=== PATIENT | male | born 2000 | race Two or more races ===

== ENCOUNTER 2024-02-24 11:05 | Inpatient (IN) ==
[2024-02-24] MEDS: SODIUM CHLORIDE 0.9% 1,000 ML IV STA (12:00)
--- NOTE | 2024-02-24 12:00 | Emergency Department Note ---
ED Provider Note History of Present Illness Chief Complaint: Rectal Pain Stated Complaint: RECTAL PAIN Time Seen by Provider: 02/24/24 11:42 23-year-old male who presents the emergency department with complaint of progressively worsening rectal pain. The patient reports that he has had discomfort for the past few days. He was seen yesterday at [facility], diagnosed with a hemorrhoid, and provided a prescription for hydrocortisone cream. The patient reports that he has been dealing with diarrhea now for over a year. He reports that [facility] will be getting some additional lab work on Sunday, and has been referred to gastroenterology for further workup. The patient denies any lower abdominal pain, nausea or fever. Patient denies any urinary symptoms. The patient rates his discomfort a 3 out of 10. Home Medications Medication Instructions Recorded Confirmed Type hydrocortisone 2.5 % topical cream 1 applic [place] DAILY PRN IRRITATION 02/24/24 02/24/24 History with perineal applicator Allergies Allergy/AdvReac Type Severity Reaction Status Date / Time cat dander Allergy Intermediate Sneezing Unverified 02/24/24 14:34 Past Med/Surg History Problem List (Updated 02/24/24 @ 15:52 by Jus Mann) Pancolitis (Acute) Krista-rectal abscess (Acute) Pancolitis Perirectal abscess Rectal pain (Acute) Diarrhea Medical History (Updated 02/24/24 @ 15:52 by Jus Mann) No significant past medical history Surgical History (Updated 02/24/24 @ 11:58 by Jus Mann) No significant past surgical history Social History (Updated 02/24/24 @ 11:58 by Jus Mann) Smoking Status: Never smoker Second Hand Exposure: Yes; Do You Dip or Chew Tobacco: No; Hx Alcohol Use: No Hx Substance Use: No Preferred Language: Luxembourgish Pharmacist Assistant Required: No Beliefs That Will Affect Care: Roman Catholic Roman Catholic Beliefs: Muslium No pig products or gelitin. current occupational status: student Feels Safe at Home: Yes Assistive Devices: Glasses Physical Exam Vital Signs Vital Signs - 24 hr 02/24/24 11:12 02/24/24 14:00 Temperature 36.3 C L Temperature Source Temporal Artery Scan Pulse Rate 117 H Pulse Rate [Left Finger] 87 Respiratory Rate 18 18 Respiratory Effort / Characteristics Non-Labored Spontaneous Respiratory Depth Normal Respiratory Pattern Regular Blood Pressure 126/70 Blood Pressure [Right Arm] 125/69 Blood Pressure Mean 88 Blood Pressure Mean [Right Arm] 87 Blood Pressure Position [Right Arm] Lying Pulse Oximetry 96 98 Oxygen Delivery Method Room Air Sepsis Recent Fever Within 48 Hours No Sepsis New/Unexplained Change in Mental Status N/A Sepsis Action Taken by Nursing No Action Required CONSTITUTIONAL: Healthy and well nourished. Patient does not appear in any acute distress HEENT: No scleral icterus or conjunctival injection. GASTROINTESTINAL: Bowel sounds present in all quadrants. Abdomen is soft and nontender to palpation. With a male nurse cargo station worker present, examination does not show any external hemorrhoids. The patient has tenderness to palpation of the left posterior perirectal region. Digital rectal exam was deferred because of patient discomfort. No overriding erythema noted. INTEGUMENTARY: No rash or other significant dermatologic conditions noted. HEMATOLOGIC: No ecchymosis or petechiae. PSYCHIATRIC: Positive affect. NEUROLOGIC: No focal neurologic deficits noted. Course Course Patient history and physical exam were performed. Nurses notes reviewed. Vital signs were reviewed, showing a tachycardia without evidence for fever or hypotension. IV access was established, and labs were drawn. The patient refused any analgesics or antiemetics on initial exam. Review of labs shows a mild leukocytosis. CMP is otherwise unremarkable other than mildly elevated total bilirubin and CRP. CT with IV contrast of the abdomen and pelvis shows a 15 mm left perirectal abscess, with mild colitis with circumferential thickening, and no additional abscesses or perforations noted. Findings were discussed with Dr. Killian, ED team physician, as well as general surgery on-call. They indicated that the abscess would be too small to drain at this time, but did recommend admission for IV antibiotics and GI consultation. I did order Zosyn 4.5 g IV infusion. The patient refused any additional analgesics. The case was then discussed with the [facility] Hospitalist service. Please see their dictations, as well as general surgery dictations for further treatment and final disposition. Administered Medications Lactated Ringer's (Lr) 1,000 mls @ 100 mls/hr IV .Q10H DARI Stop: 02/25/24 00:29 Last Admin: 02/24/24 16:22 Dose: 100 mls/hr Documented By: KELLIE Discontinued Medications Sodium Chloride (Nss) 1,000 mls @ 999 mls/hr IV .Q1H1M STA Stop: 02/24/24 12:54 Last Infusion: 02/24/24 13:01 Dose: Infused Documented By: Admin: 02/24/24 12:00 Dose: 999 mls/hr Documented By: DEREK Piperacillin Sod/Tazobactam Sod (Zosyn) 4.5 gm in 100 mls @ 200 mls/hr IV NOW ONE Stop: 02/24/24 14:42 Last Admin: 02/24/24 14:20 Dose: 200 mls/hr Documented By: DEREK Ioversol (Optiray 320 100ml) 94 ml IV ONCE ONE Stop: 02/24/24 13:21 Last Admin: 02/24/24 13:20 Dose: 94 ml Documented By: VAISHNAVI Medical Decision Making Medical Records Attestation: I reviewed the patient's medical records. Home Medications was personally reviewed by Laboratory Data Attestation: I reviewed the patient's lab results. 02/24/24 12:00 02/24/24 12:00 Lab Results 02/24/24 Range/Units 12:00 WBC 10.89 H (4.8-10.8) K/ul RBC 5.48 (4.70-6.10) M/uL Hgb 14.2 (14.0-18.0) g/dl Hct 43.7 (42.0-52.0) % MCV 79.7 L (80.0-100.0) fL MCH 25.9 (25.0-34.0) pg MCHC 32.5 (32.0-36.0) g/dL RDW Std Deviation 35.4 L (36.4-46.3) fL RDW Coeff of Sommer 12.4 (11.5-14.5) % Plt Count 354 (130-400) K/uL MPV 9.6 (9.4-12.4) fL Immature Gran % (Auto) 0.5 % Neut % (Auto) 67.2 % Lymph % (Auto) 20.8 % [place] % (Auto) 9.2 % Eos % (Auto) 1.7 % Baso % (Auto) 0.6 % Neut # (Auto) 7.34 H (1.40-6.50) K/uL Lymph # (Auto) 2.26 (1.20-3.40) K/uL [place] # (Auto) 1.00 H (0.11-0.59) K/uL Eos # (Auto) 0.18 (0.00-0.50) K/uL Baso # (Auto) 0.06 (0.00-0.20) K/uL Immature Gran # (Auto) 0.05 (0.01-0.20) K/uL Sodium 136 (136-145) mmol/L Potassium 3.9 (3.5-5.1) mmol/L Chloride 104 (98-107) mmol/L Carbon Dioxide 25 (21-32) mmol/L Anion Gap 7 (3-11) BUN 10 (6-23) mg/dl Creatinine 1.00 (0.6-1.4) mg/dl Est Cr Clr Drug Dosing Not Reportable Est GFR ( Amer) 123.3 ml/min Est GFR (Non-Af Amer) 106.4 ml/min BUN/Creatinine Ratio 10.0 (10-20) Glucose 87 (70-99(Fasting)) mg/dl Calcium 9.6 (8.6-10.3) mg/dl Total Bilirubin 1.8 H (0.2-1.0) mg/dl AST 18 (13-39) U/L ALT 24 (7-52) U/L Alkaline Phosphatase 99 (34-104) U/L C-Reactive Protein 2.62 H (0-0.5) mg/dl Total Protein 7.6 (6.0-8.3) gm/dl Albumin 4.4 (3.4-5.0) gm/dl Globulin 3.2 (2.5-4.0) gm/dl Albumin/Globulin Ratio 1.4 (0.9-2) Lipase 14 (11-82) U/L Imaging Data Attestation: I personally reviewed and interpreted this imaging study as follows: My Impression: My interpretation of the CT with IV contrast of the abdomen and pelvis shows evidence for a 15 mm left perirectal abscess, as well as pancolitis without any additional abscesses or perforations. Radiologist report was also reviewed with concurrence. Radiologist's Impression: Abdomen/Pelvis CT 02/24/24 11:[address] WITH IV CONTRAST CT DOSE: 1647.36 mGy.cm HISTORY: Rectal pain TECHNIQUE: Multiaxial CT images of the abdomen and pelvis were performed following the use of intravenous contrast. A dose lowering technique was utilized adhering to the principles of ALARA. COMPARISON STUDY: None. FINDINGS: The lung bases are clear. No pneumoperitoneum. No pneumatosis. No acute fractures. The liver, gallbladder, pancreas, spleen, adrenal glands, and kidneys are unremarkable. No hydronephrosis. The main portal vein is patent. Normal caliber abdominal aorta. No retroperitoneal lymphadenopathy. A few prominent mesenteric lymph nodes which may be reactive. No pelvic lymphadenopathy or pelvic free fluid. Normal bladder. There is a 15 mm left perirectal abscess best seen on image 358. No supralevator extension. There is mild circumferential thickening throughout the colon which demonstrates an ahaustral appearance. This is consistent with a mild colitis and could be due to an underlying inflammatory bowel disease. No evidence for bowel obstruction. Normal appendix. IMPRESSION: 1. A 15 mm left perirectal abscess. 2. Mild circumferential thickening throughout the colon consistent with a mild pancolitis. This could be due to an underlying inflammatory bowel disease. GI consultation recommended. ACT 112: Negative or not required by law. Electronically signed by: Sekou Lee M.D. 02/24/2024 1:36 PM MDM Narrative See ED Course section for further details of today's visit. The patient presents for evaluation of progressively worsening and painful hemorrhoid after being seen yesterday at [facility]. He was provided a prescription for hydrocortisone cream. On today's examination, the patient does not have evidence for external hemorrhoid, but rather a painful area of induration of the perianal region. CT with IV contrast of the abdomen and pelvis shows a 15 mm perirectal abscess and pancolitis. This is concerning for underlying IBD. The abscess does appear to be too small for I&D at this time, with general surgery in agreement. They have recommended admission for IV antibiotics and GI consultation. General surgery will also follow in case I&D would be needed. Impression Krista-rectal abscess, Rectal pain, Pancolitis Discharge Plan Visit Data Chief Complaint: Rectal Pain Stated Complaint: RECTAL PAIN ED Provider: Vinnie Killian ED Midlevel Provider: Jus Mann Discharge Problem: Krista-rectal abscess, Rectal pain, Pancolitis Patient Disposition: Admitted As Inpatient Discharge Instructions Interventions: ED Discharge Assessment Last Done: 02/24/24 14:48
[2024-02-24 12:32] LABS: Basophils # (auto) 0.06 K/uL (0.00-0.20); Basophils % (auto) 0.6 %; Eosinophils # (auto) 0.18 K/uL (0.00-0.50); Eosinophils % (auto) 1.7 %; Hematocrit (blood only) 43.7 % (42.0-52.0); Hemoglobin 14.2 g/dl (14.0-18.0); Immature Granulocytes # (auto) 0.05 K/uL (0.01-0.20); Immature Granulocytes % (auto) 0.5 %; Lymphocytes # (auto) 2.26 K/uL (1.20-3.40); Lymphocytes % (auto) 20.8 %; Mean Corpuscular Hemoglobin 25.9 pg (25.0-34.0); Mean Corpuscular Hgb Conc 32.5 g/dL (32.0-36.0); Mean Corpuscular Volume 79.7 fL (80.0-100.0); Mean Platelet Volume 9.6 fL (9.4-12.4); Monocytes % (auto) 9.2 %; Neutrophils # (auto) 7.34 K/uL (1.40-6.50); Neutrophils % (auto) 67.2 %; Platelet Count 354 K/uL (130-400); RDW Coefficient of Variation 12.4 % (11.5-14.5); RDW Standard Deviation 35.4 fL (36.4-46.3); Red Blood Count 5.48 M/uL (4.70-6.10); White Blood Count 10.89 K/ul (4.8-10.8)
[2024-02-24 12:45] LABS: Alanine Aminotransferase 24 U/L (7-52); Albumin Globulin Ratio 1.4 (0.9-2); Albumin Level 4.4 gm/dl (3.4-5.0); Alkaline Phosphatase 99 U/L (34-104); Anion Gap 7 (3-11); Aspartate Aminotransferase 18 U/L (13-39); Bilirubin,Total 1.8 mg/dl (0.2-1.0); Blood Urea Nitrogen 10 mg/dl (6-23); Calcium 9.6 mg/dl (8.6-10.3); Carbon Dioxide 25 mmol/L (21-32); Chloride 104 mmol/L (98-107); Est GFR (African American) 123.3 ml/min; Est GFR (Non-African American) 106.4 ml/min; Globulin 3.2 gm/dl (2.5-4.0); Glucose 87 mg/dl (70-99(Fasting)); Lipase 14 U/L (11-82); Potassium 3.9 mmol/L (3.5-5.1); Sodium 136 mmol/L (136-145); Total Protein 7.6 gm/dl (6.0-8.3)
[2024-02-24] MEDS: OPTIRAY 320 100ml IV ONE (13:20)
--- NOTE | 2024-02-24 13:38 | CT Scan Report ---
ABDOMEN AND PELVIS CT WITH IV CONTRAST CT DOSE: 1647.36 mGy.cm HISTORY: Rectal pain TECHNIQUE: Multiaxial CT images of the abdomen and pelvis were performed following the use of intrave nous contrast. A dose lowering technique was utilized adhering to the principles of ALARA. COMPARISON STUDY: None. FINDINGS: The lung bases are clear. No pneumoperitoneum. No pneumatosis. No acute fractures. The live r, gallbladder, pancreas, spleen, adrenal glands, and kidneys are unremarkable. No hydronephrosis. Th e main portal vein is patent. Normal caliber abdominal aorta. No retroperitoneal lymphadenopathy. A f ew prominent mesenteric lymph nodes which may be reactive. No pelvic lymphadenopathy or pelvic free f luid. Normal bladder. There is a 15 mm left perirectal abscess best seen on image 358. No supralevato r extension. There is mild circumferential thickening throughout the colon which demonstrates an ahau stral appearance. This is consistent with a mild colitis and could be due to an underlying inflammato ry bowel disease. No evidence for bowel obstruction. Normal appendix. IMPRESSION: 1. A 15 mm left perirectal abscess. 2. Mild circumferential thickening throughout the colon consistent with a mild pancolitis. This could be due to an underlying inflammatory bowel disease. GI consultation recommended. ACT 112: Negative or not required by law. Electronically signed by: Sekou Lee M.D. 02/24/2024 1:36 PM
--- NOTE | 2024-02-24 14:07 | History & Physical Report ---
Date of Service February 24, 2024 Assessment & Plan (1) Rectal pain: Plan: Admit to [facility] Currently stable and nontoxic-appearing Presented to the ED with approximately 2 weeks of recurrent diarrhea and progressive perirectal pain Was given hydrocortisone cream by [facility] services yesterday without improvement of his symptoms CT abdomen pelvis with IV contrast today shows an approximate 15 mm left Gus rectal abscess General surgery has been consulted, they will evaluate the patient but per review of imaging they do not believe the abscess is able to be drained at this time Was given 1 L normal saline and ordered a dose of Zosyn in the ED prior to adm ission Will continue with Zosyn for now Will obtain stool panel and C. difficile testing for further assessment Patient denies recent antibiotic use or previous history of IBS in his history or family history Will give another 1 L LR at the time of admission As needed Tylenol and morphine for pain Will order a [id number] mattress for comfort Clear liquid diet for now Ambulation in the hallway for DVT prophylaxis AM CBC, CMP, mag, PT/INR (2) Pancolitis: Plan: CT of the abdomen pelvis with IV contrast notes mild circumferential thickening throughout the colon consistent with a mild pancolitis CT results recommend GI consultation due to possibility of findings being consistent with IBS Will continue IV fluids and IV antibiotics per rectal pain plan Follow stool studies and C. difficile PCR Will give 80 mg IV pantoprazole now with 40 mg IV twice daily due to his reported lack diarrhea, hemoglobin is currently stable Clear liquid diet for now Will hold off on GI consult while admitted as they likely will not perform colonoscopy with active colitis and perirectal abscess Please ensure patient has an outpatient GI referral at the time of discharge (3) Diarrhea: Plan: See rectal pain and pancolitis plan (4) Perirectal abscess: Plan: See rectal pain plan Plan The patient was discussed with Dr. Woodard at the time of admission History of Present Illness Chief Complaint: Recurrent diarrhea, rectal pain Primary Care Provider: [facility] [place] Is a 23-year-old male with a past medical history of asthma who presented to the [facility] ED on 02/24/2024 with complaints of ongoing diarrhea and progressive rectal pain for the past 2 weeks. On arrival to the ED he was noted to be tachycardic at 117 but was otherwise stable. Labs were significant for leukocytosis of 10 with neutrophil predominance of 7 and total bili of 1.8 with other LFTs within normal limits. CT of the abdomen pelvis with IV contrast was read as a 15 mm left perirectal abscess. Mild circumferential thickening throughout the colon consistent with a mild pancolitis. This could be due to an underlying inflammatory bowel disease GI co nsultation recommended. The ED spoke to general surgery who will evaluate the patient but did not believe the abscess is large enough to be drained at this time. Prior to admission the patient was given 1 L NSS and was ordered a dose of Zosyn. Patient was sitting in bed in no acute distress at time of exam. He explains that he has been having persistent diarrhea over the past 2 weeks. Approxi mately 10-20 episodes of diarrhea daily. Denies bloody bowel movements, but notes some dark/black diarrhea at times. No recent fevers chills, no recent nausea/vomiting, has been able to eat and drink without issue. Over the past 2 weeks he has developed progressive rectal pain, mainly on the upper left perirectal area. He was evaluated at [facility] on 02/23/2024 and was given hemorrhoid cream. Since using the hemorrhoid cream his pain is progressed. No previous history or diagnosis of IBS for the patient or in his family. He does note 2-3 other episodes in the past of diarrhea and mild abdominal pain. He used 1 dose of ibuprofen for his pain yesterday but has not been taking it consistently. Please refer to Dr. Woodard's attestation for any changes to the treatment plan Allergies Allergy/AdvReac Type Severity Reaction Status Date / Time cat dander Allergy Intermediate Sneezing Unverified 02/24/24 14:34 Home Medications Medication Instructions Recorded Confirmed Type hydrocortisone 2.5 % topical cream 1 applic [place] DAILY PRN IRRITATION 02/24/24 02/24/24 History with perineal applicator Past Med/Surg History Problem List (Updated 02/24/24 @ 15:52 by Jus Mann) Pancolitis (Acute) Krista-rectal abscess (Acute) Pancolitis Perirectal abscess Rectal pain (Acute) Diarrhea Medical History (Updated 02/24/24 @ 15:52 by Jus Mann) No significant past medical history Surgical History (Updated 02/24/24 @ 11:58 by Jus Mann) No significant past surgical history Social History (Updated 02/24/24 @ 11:58 by Jus Mann) Smoking Status: Never smoker Second Hand Exposure: Yes; Do You Dip or Chew Tobacco: No; Hx Alcohol Use: No Hx Substance Use: No Preferred Language: Slovak Pile Driver Operator Helper Required: No Beliefs That Will Affect Care: Adventist Adventist Beliefs: Muslium No pig products or gelitin. current occupational status: student Feels Safe at Home: Yes Assistive Devices: Glasses Physical Exam Physical Exam: Physical Exam: General: In no acute distress, stated age, well-nourished, non-toxic appearing HEENT: Normocephalic, atraumatic, no scleral icterus, pupils around round, symmetrical, and reactive to light, moist mucus membranes, trachea midline, no thyromegaly Chest/Pulm: No respiratory distress, symmetrical chest expansion, clear breath sounds throughout Cardiac: RRR, no murmurs noted Abdomen: Negative for ascites and bruising, normoactive bowel sounds, soft, non-tender to palpation throughout : No obvious sign of infection, erythema, induration, or drainage on inspection and palpation of the perirectal area, patient does have tenderness on palpation of the left upper perirectal region Musculoskeletal: Symmetrical and without signs of acute trauma, upper and lower extremities with full ROM, no atrophy, spasticity, or flaccidity Extremities: Radial, dorsalis pedis, and posterior tibial pulses are intact and symmetrical, no edema noted in the BL LE's Skin: Warm, dry, no rashes , lesions, or scars noted Neuro: Alert and oriented to person, place, month, year, and president, no focal defects, no tremors noted Psych: No acute distress, calm and cooperative during the exam Results & Data Results & Data Vital Signs (Past 12 Hours) Vital Signs Temp Pulse Pulse Resp BP BP Pulse Ox 02/24/24 14:00 87 18 125/69 98 02/24/24 11:12 36.3 C L 117 H 18 126/70 96 O2 Del Method 02/24/24 14:00 02/24/24 11:12 Room Air Laboratory Results Abnormal lab results 02/24/24 Range/Units 12:00 WBC 10.89 H (4.8-10.8) K/ul MCV 79.7 L (80.0-100.0) fL RDW Std Deviation 35.4 L (36.4-46.3) fL Neut # (Auto) 7.34 H (1.40-6.50) K/uL [place] # (Auto) 1.00 H (0.11-0.59) K/uL Total Bilirubin 1.8 H (0.2-1.0) mg/dl Diagnostic Findings Abdomen/Pelvis CT 02/24/24 11:[address] WITH IV CONTRAST CT DOSE: 1647.36 mGy.cm HISTORY: Rectal pain TECHNIQUE: Multiaxial CT images of the abdomen and pelvis were performed following the use of intravenous contrast. A dose lowering technique was utilized adhering to the principles of ALARA. COMPARISON STUDY: None. FINDINGS: The lung bases are clear. No pneumoperitoneum. No pneumatosis. No acute fractures. The liver, gallbladder, pancreas, spleen, adrenal glands, and kidneys are unremarkable. No hydronephrosis. The main portal vein is patent. Normal caliber abdominal aorta. No retroperitoneal lymphadenopathy. A few prominent mesenteric lymph nodes which may be reactive. No pelvic lymphadenopathy or pelvic free fluid. Normal bladder. There is a 15 mm left perirectal abscess best seen on image 358. No supralevator extension. There is mild circumferential thickening throughout the colon which demonstrates an ahaustral appearance. This is consistent with a mild colitis and could be due to an underlying inflammatory bowel disease. No evidence for bowel obstruction. Normal appendix. IMPRESSION: 1. A 15 mm left perirectal abscess. 2. Mild circumferential thickening throughout the colon consistent with a mild pancolitis. This could be due to an underlying inflammatory bowel disease. GI consultation recommended. ACT 112: Negative or not required by law. Electronically signed by: Sekou Lee M.D. 02/24/2024 1:36 PM Code Status & VTE Plan Code Status full code VTE Prophylaxis Plan VTE Prophylaxis will be ordered: Yes Supervising Physician Co-Signing Physician Notes I personally saw and examined the patient. I verified all vance points and agree with Eduar Louie PA-C with the following exceptions and/or additions: 23 year old male presents to the ER with 2 days rectal pain/lump. 2 weeks of diarrhea prior to this. Intermittent diarrhea episodes for the last 2 years. O/E HS RRR, no murmurs, Chest CTAB, Abdo SNT A/P Perirectal abscess - IV Zosyn, clear liquid diet. Diarrhea - improving, stool and c. diff PCR. Consider follow up with GI for colonoscopy if infectious etiology ruled out. PG Care Time/CCT Total # of Minutes Spent Total Time Spent with Patient: Total time spent is greater than 50% in coordination of care (as documented) at patient's floor/unit and/or counseling patient: [place] [address] INT INP/OBS CARE 2/55MIN Patient Type New Medical Decision Making Moderate Complexity Diagnoses Rectal pain K62.89 Pancolitis K51.00 Diarrhea R19.7 Perirectal abscess K61.1
[2024-02-24] MEDS ORDERED: MoRPHine SULFATE 2 MG/ML CARP IV PRN (14:20)
[2024-02-24] MEDS: PIPERACILLIN/TAZOBACTAM 4.5 GM/100 ML BAG IV ONE (14:20)
[2024-02-24 14:49] LABS: C Reactive Protein 2.62 mg/dl (0-0.5)
--- NOTE | 2024-02-24 15:59 | Surgery Consultation ---
Date of Consultation February 24, 2024 Assessment & Plan (1) Pancolitis: (2) Krista-rectal abscess: Plan 23 y/o M with recent h/l ongoing diarrhea having multiple stools per day that have been black and tarry occasionally. CT with questionable pancolitis suggesting of IBD and evidence for a very small perirectal abscess. He is HD stable, afebrile, without significant leukocytosis or pain. No acute surgical intervention. Patient would benefit from IV antibiotic treatment at this time Recommend stools studies if the patient continues to have diarrhea during admission. GI evaluation potentially for IBD is pending. From a surgical perspective, he may continue a diet. NPO after MN until surgical assessment in the am. History of Present Illness Reason for Consultation: Perirectal abscess Attending Physician: Juan Woodard MD History of Present Illness Morro is a 23y/o M who presented to the ED today for further evaluation of perirectal pain. He states he has been having 20-22BMs per day that are sometimes dark and tarry. He says he began to develop anal pain that progressively worsened over the past week or so which brought him to the emergency room. In the ED, he was HD stable, afebrile with very mild leukocytosis of 10.89 and normal H/H. A CT of the A/P was performed that revealed a 15mm perirectal abscess and mild circumferential thickening throughout the colon consistent with a mild pancolitis that appeared potentially due to an underlying inflammatory bowel disease. He was started on IV antiobiotics and has been admitted to medicine with requests for GI and surgical consultation. Morro states he does not current have abdominal pain. He occasionally will have abdominal pain just before having bowel movements. He uses Ibuprofen on rare occasions but not excessively. He denies a FHX of inflammatory bowel disease. Allergies Allergy/AdvReac Type Severity Reaction Status Date / Time cat dander Allergy Intermediate Sneezing Unverified 02/24/24 14:34 Home Medications Medication Instructions Recorded Confirmed Type hydrocortisone 2.5 % topical cream 1 applic [place] DAILY PRN IRRITATION 02/24/24 02/24/24 History with perineal applicator Patient History Medical History (Updated 02/24/24 @ 15:52 by Jus Mann) No significant past medical history Surgical History (Updated 02/24/24 @ 11:58 by Jus Mann) No significant past surgical history Social History (Updated 02/24/24 @ 11:58 by Jus Mann) Smoking Status: Never smoker Preferred Language: Taiwanese current occupational status: student Feels Safe at Home: Yes Review of Systems Review of Systems: All systems reviewed & are unremarkable except as noted in HPI & below Physical Exam Constitutional: not ill appearing, not in distress and not diaphoretic Respiratory: normal respiratory effort; no respiratory distress, no labored breathing and does not use accessory muscles Gastrointestinal (Abdomen): Inspection/Auscultation: abdomen not distended Percussion/Palpation: abdomen nontender and no guarding Patient accepted a perirectal examination which was done with the surgical PA as tube wrapper. There was no significant TTP, no significant erythema. A very small area of induration very adjacent to the left anus without notable fluctuance. There was a small mild indentation at one location that appeared to potentially have previously been an open area. The skin was completely closed at this time, no open areas, no drainage. Results & Data Vital Signs (Past 12 Hours) Vital Signs Temp Pulse Pulse Resp BP BP Pulse Ox 02/24/24 14:00 87 18 125/69 98 02/24/24 11:12 36.3 C L 117 H 18 126/70 96 O2 Del Method 02/24/24 14:00 02/24/24 11:12 Room Air PG Care Time/CCT Total # of Minutes Spent Total Time Spent with Patient: Total time spent is greater than 50% in coordination of care (as documented) at patient's floor/unit and/or counseling patient: Coding Level of Care Code 04336 IN/OBS CONSULT LVL 2,35M Diagnoses Pancolitis K51.00 Krista-rectal abscess K61.1
[2024-02-24] MEDS: LACTATED RINGER'S 1,000 ML IV SCH (16:22)
[2024-02-24] MEDS: PANTOprazole 80 MG in DEXTROSE 5% 100 ML IV STA (17:25)
[2024-02-24 19:41] LABS: Appearance Urine Clear (Clear); Bilirubin Urine Negative (Negative); Blood Urine Negative (Negative); Color Urine Yellow; Glucose Urine UA Negative (Negative); Ketones Urine Negative (Negative); Leukocyte Esterase Urine Negative (Negative); Nitrite Urine Negative (Negative); Protein Urine Negative (Negative); Specific Gravity Urine > 1.045 (1.000-1.030); Urobilinogen Urine Negative (Negative); pH Urine 7.5 (4.5-7.5)
[2024-02-24] MEDS: PANTOprazole 40 MG in SYRINGE 0 ML IV SCH (20:02)
[2024-02-24] MEDS: PIPERACILLIN/TAZOBACTAM 4.5 GM in DEXTROSE 5% MINI-B 100 ML IV SCH (20:13)
[2024-02-24 20:55] LABS: Adenovirus F 40/41 PCR Not Detected (NotDetected); Astrovirus PCR Not Detected (NotDetected); Campylobacter PCR Not Detected (NotDetected); Cryptosporidium PCR Not Detected (NotDetected); Cyclospora cayetanensis PCR Not Detected (NotDetected); Entamoeba histolytica PCR Not Detected (NotDetected); Enteroaggregative E.coli(EAEC) Not Detected (NotDetected); Enteropathogenic E.coli (EPEC) Not Detected (NotDetected); Enterotoxigenic E.coli (ETEC) Not Detected (NotDetected); Giardia lamblia PCR Not Detected (NotDetected); Norovirus GI/GII PCR Not Detected (NotDetected); Plesiomonas shigelloides PCR Not Detected (NotDetected); Rotavirus A PCR Not Detected (NotDetected); Salmonella PCR Not Detected (NotDetected); Sapovirus PCR Not Detected (NotDetected); Shiga-like Toxin E.coli (STEC) Not Detected (NotDetected); Shigella/Enteroinvasive E.coli Not Detected (NotDetected); Vibrio cholerae PCR Not Detected (NotDetected); Vibrio species PCR Not Detected (NotDetected); Yersinia enterocolitica PCR Not Detected (NotDetected)
[2024-02-24] MEDS: SODIUM CHLORIDE 0.9% 1,000 ML IV SCH (21:14)
[2024-02-25 07:37] LABS: Basophils # (auto) 0.07 K/uL (0.00-0.20); Basophils % (auto) 0.6 %; Eosinophils # (auto) 0.25 K/uL (0.00-0.50); Eosinophils % (auto) 2.2 %; Hematocrit (blood only) 40.2 % (42.0-52.0); Immature Granulocytes # (auto) 0.09 K/uL (0.01-0.20); Immature Granulocytes % (auto) 0.8 %; Lymphocytes # (auto) 2.42 K/uL (1.20-3.40); Lymphocytes % (auto) 20.9 %; Mean Corpuscular Hemoglobin 26.2 pg (25.0-34.0); Mean Corpuscular Hgb Conc 32.3 g/dL (32.0-36.0); Mean Platelet Volume 9.9 fL (9.4-12.4); Monocytes # (auto) 1.22 K/uL (0.11-0.59); Monocytes % (auto) 10.5 %; Neutrophils # (auto) 7.55 K/uL (1.40-6.50); Platelet Count 317 K/uL (130-400); RDW Coefficient of Variation 12.5 % (11.5-14.5); RDW Standard Deviation 36.6 fL (36.4-46.3); Red Blood Count 4.96 M/uL (4.70-6.10)
[2024-02-25] MEDS ORDERED: LACTATED RINGER'S 1,000 ML IV SCH (07:45)
[2024-02-25 07:47] LABS: Albumin Globulin Ratio 1.4 (0.9-2); Albumin Level 3.8 gm/dl (3.4-5.0); Bilirubin,Total 2.3 mg/dl (0.2-1.0); Calcium 8.8 mg/dl (8.6-10.3); Creatinine Clr Calc Pharmacy 156.9 ml/min; Est GFR (African American) 123.3 ml/min; Est GFR (Non-African American) 106.4 ml/min; Globulin 2.8 gm/dl (2.5-4.0); Potassium 3.8 mmol/L (3.5-5.1); Total Protein 6.6 gm/dl (6.0-8.3)
[2024-02-25] MEDS: SODIUM CHLORIDE 0.9% 1,000 ML IV SCH (07:59)
[2024-02-25 08:00] LABS: Prothrombin Time 11.3 Seconds (9.0-12.0)
--- NOTE | 2024-02-25 08:12 | Hospitalist Progress Note ---
Date of Service February 25, 2024 Assessment & Plan (1) Rectal pain: Plan: Presented to the ED with approx. 2 weeks of recurrent diarrhea and several days of progressive perirectal pain. Denies recent infection or abx use CT abd/pelvis w/ con showed ~15 mm left jesusita-rectal abscess Gen surg consulted: PE noted no significant TTP, more erythema today, small induration adjacent to left anus, no open areas, no drainage; pt consented for drainage this AM, planned for later today NPO, on NSS 100ml/hr On Zosyn 4.5 IV q8h, Tylenol and morphine as needed for pain Stool panel, C. diff testing pending AM CBC, CMP, mag, PT/INR (2) Pancolitis: Plan: CT abd/pelvis w/ con noted mild circumferential thickening throughout colon consistent with a mild pancolitis; results recommend GI consultation due to possibility of findings being consistent with IBS Given 80 mg IV pantoprazole; continue 40 mg IV BID Continue IVF and IV abx per rectal pain plan Hgb stable. Follow stool studies and C. diff PCR Ensure patient has outpatient GI referral at the time of discharge (3) Diarrhea: Plan: See rectal pain and pancolitis plan (4) Perirectal abscess: Plan: See rectal pain plan Admission and Anticipated Discharge Date Admission Date: February 24, 2024 Subjective Pt says he feels a little worse this morning; he would rate his pain at arrival as 2/10 but today it is 3-4. He explains that his sx started ~2 weeks ago w diarrhea (10-14 episodes per day) and then progressive rectal pain over the past few days. He says he has never experienced anything similar and denies any personal or family hx of GI dz or malignancy. Reports no recent infections, abx use, or associated sx including fever, chills, rashes, n/v. He is accepting of gen surg plan for OR today to drain abscess, and says he would like to speak with someone from GI. He had no other questions or concerns this morning. Review of Systems Constitutional: no fever, no chills, no sweats and no body aches Respiratory: no cough and no dyspnea Cardiovascular: no chest pain Gastrointestinal: + diarrhea/loose stools; no abdominal pa in, no nausea and no vomiting Genitourinary: no dysuria, no difficulty urinating, no urinary frequency or no urinary urgency Musculoskeletal: no back pain Integumentary: no rash Physical Exam Physical Exam: General: NAD, wd/wn, AOx3 HEENT: NCAT, EOMI CV: RRR, no m/r/g Pulm: CTAB, normal respiratory effort Abd: nt/nd, +BS Skin: warm, dry, no rashes, lesions, or bruising Results & Data Results & Data Vital Signs (Past 12 Hours) Vital Signs Temp Pulse Resp BP Pulse Ox O2 Del Method 02/25/24 07:15 37.0 C 92 H 16 113/69 98 Room Air
--- NOTE | 2024-02-25 08:27 | Surgery Progress Note ---
<Statement entered by Raissa Dewitt, DO - 02/25/24 10:25> I have seen and examined this patient this am. I agree with this plan. After discussion of the details, he was consented for I&D of jesusita-rectal abscess and all other indicated procedures. Date of Service February 25, 2024 Assessment & Plan (1) Jesusita-rectal abscess: Plan: Pt here w/ jesusita rectal abscess and concern for pancolitis WBC 11.6. Pt afebrile Worsening pain and discomfort of the buttocks this AM along w/ increased induration/erythema/tenderness GI consult for concern for IBD with history of diarrhea and CT scan concerning for pancolitis We will book pt for the OR today for I&D of jesusita-rectal abscess w/ Dr. Tran Fernandez Continue NPO until surgery, may resume diet after from our POV Continue IV abx Admission and Anticipated Discharge Date Admission Date: February 24, 2024 Subjective Pt reports feeling a little worse in buttocks region this AM. Says it hurts to move. He feels more "texture" to the area. Physical Exam Physical Exam: awake/alert, no distress Respiratory: normal respiratory effort Gastrointestinal (Abdomen): some increased induration and tenderness and erythema in L buttocks region Results & Data Vital Signs (Past 12 Hours) Vital Signs Temp Pulse Resp BP Pulse Ox O2 Del Method 02/25/24 07:15 98.6 F 92 H 16 113/69 98 Room Air PG Care Time/CCT Total # of Minutes Spent Total Time Spent with Patient: Total time spent is greater than 50% in coordination of care (as documented) at patient's floor/unit and/or counseling patient: Coding Level of Care Code 24565 SUB INP/OBS CARE 09/06MIN Diagnoses Jesusita-rectal abscess K61.1
[2024-02-25] MEDS: ACETAMINOPHEN 325 MG TAB PO PRN (08:43)
--- NOTE | 2024-02-25 10:19 | Medical Student Progress Note ---
Date of Service February 25, 2024 Assessment & Plan (1) Krista-rectal abscess: Plan: Patient is a 23y/o male with no significant past medical history presenting for perirectal abscess in the setting of chronic diarrhea. Perirectal Abscess: Status: acute, stable. General surgery consulted. Drainage planned for today. NPO, on NSS 100ml/hr. Zosyn 4.5 IV q8hr. Tylenol and morphine prn for pain control. (2) Pancolitis: Plan: CT abdomen/pelvis revealed mild circumferential thickening throughout colon consistent with a mild pancolitis, likely consistent with IBD especially in the setting of chronic diarrhea. Status: acute, stable. Pantoprazole 40 mg IV BID. Continue IV fluids and IV abx per perirectal abscess plan above. Consult GI. (3) Diarrhea: Plan: Ongoing diarrhea 1yr, significantly worse in the last 2 weeks. Highly suspicious for underlying IBD and suspect patient is currently in an acute flare especially in the setting of a perirectal abscess. Status: acute on chronic, improving. Consult GI. Continue to monitor diarrhea. Will hold of on initiating steroids at this time due to perirectal abscess and wanting to avoid suppression of immune system. Consider adding steroids if diarrhea does not continue to improve. Admission and Anticipated Discharge Date Admission Date: February 24, 2024 Supervising Attestation I personally examined the patient and verified all vance points of history and exam, discussed case, and agree with decision making with Dr Cuenca and Esme Yeager MS4 Ongoing rectal pain. For surgery this afternoon. No acute complaints otherwise. Discussed diarrhea and suspicion of inflammatory bowel disease. Discussed ongoing management and workup. Answered all questions to the best my ability and his satisfaction. Vitals noted, in general he is awake and alert pleasant no distress. HEENT normocephalic atraumatic mucous membranes moist. Breathing unlabored no accessory muscle use good effort. Skin shows no rashes no pallor or icterus. Neuro without focal deficits. Perirectal abscess, CT appearance of colitis, diarrheahighly concerning for inflammatory bowel disease. Appreciate GI assistance. Appreciate surgery assistance4 OR/I&D today. Follow diarrhea into tomorrowhopefully can be discharged tomorrow with close outpatient follow-up and outpatient colonoscopy in the near future. DVT proph - ambulation otherwise as above Subjective Patient is a 23y/o male with no significant past medical history who presented to the ED on 7/14/24 for rectal pain. Patient initially presented to [facility] on 02/23/24 for this concern. Patient was sent home with hydrocortisone cream for suspected hemorrhoid. Patient presented to ED the next day for worsening rectal pain. Patient states he began having pain 2-3 days prior to presenting at [facility] and he noticed a lump located on his rectum at that time. He also reports a history of diarrhea for the past year. He states his stools are usually soft and passed a bowel movement 3-5 times per day. However, in the last 2 weeks the patient states diarrhea significantly worsened. He states he was having about 20 episodes a day of watery diarrhea. Patient states his stools are "black and tarry." He reports a history of abdominal pain prior to using restroom and pain subsides upon defecation. Patient states diarrhea worsens with increased levels of stress. Patient denies history of constipation. Patient occasionally uses ibuprofen. He denies a history of GERD. Patient denies family history of IBD or colorectal cancer. Labs obtained in ED showed mild leukocytosis and mildly elevated CRP. CT abdomen/pelvis in ED showed 15mm L perirectal abscess and mild circumferential thickening of the colon. There were no acute events overnight. Patient states pain is worse today. He states frequently of diarrhea is improving. Patient denies fever, chills, CP, palpitations, SOB, abdominal pain, n/v, constipation, lightheadedness, or dizziness. Review of Systems Review of Systems: ROS as per above. Physical Exam Constitutional: Patient sitting upright in bed. Alert and oriented, in no acute distress. Eyes: PEERL. EOMI, anicteric sclera, no conjunctival injection. Respiratory: Breath sounds equal bilaterally. Lungs clear to auscultation bilaterally. No wheezes, rales, or rhonchi. Cardiovascular: Regular rate and rhythm. No murmurs, rubs, or gallops. Gastrointestinal (Abdomen): Normal bowel sounds. Abdomen soft and nondistended. No tenderness to palpation. Negative Casanova's sign. Neurologic: CN II-XII. No focal deficits. Results & Data Vital Signs (Past 12 Hours) Vital Signs Temp Pulse Resp BP Pulse Ox O2 Del Method 02/25/24 07:15 37.0 C 92 H 16 113/69 98 Room Air Resident Activity Tracking Resident Involvement: Resident Care Provided Care Provided: Adult Hospital Medicine Resident Supervision Co-Signing Physician Notes I also saw the patient and confirmed vance portions of the history and exam. I agree with the assessment and plan as written by XX and as summarized below. Pt says he feels a little worse this morning; he would rate his pain at arrival as 2/10 but today it is 3-4. Denies any personal or family hx of GI dz or malignancy. Reports no recent infections, abx use, or associated sx including fever, chills, rashes, n/v. He is accepting of gen surg plan for I&D today Exam: NAD, CTAB, RRR, abd nt/nd, skin warm and dry w no rashes or lesions Assessment and plan: Zosyn 4.5mg IV q8h. Continue tylenol & morphine as needed for pain control Stool panel and C. 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 Establish local care team and PCP before discharging
--- NOTE | 2024-02-25 11:06 | Gastrointestinal Consultation ---
<Statement entered by Miky Kaiser MD - 02/25/24 19:54> Patient seen and examined. Case discussed with Brendan DOWNS. Suspicious of underlying Crohn's. Patient will need OP f/u. Preliminary data being collected for OP evaluation ie Fecal Calprotectin, ASCA/ANCA. Please give OP GI F/U upon discharge. Will eventually need endoscopic studies but obviously not while he is recovering from today's surgery. IP GI Service will sign off. Date of Consultation February 25, 2024 Assessment & Plan (1) Pancolitis: (2) Krista-rectal abscess: Plan Patient admitted with rectal pain with CT suggestive of mild pancolitis and 15mm perirectal abscess. he has a 2 year history of diarrhea that recently worsened. stool studies unremarkable. He is planned for I&D of abscess today. I had discussed the case with Dr. Kaiser, who recommends checking calprotectin and an IBD panel. Patient will need an eventual colonoscopy to further evaluate in a few weeks once he has recovered from the abscess. This can be set up as an outpatient. History of Present Illness Reason for Consultation: Adrian Westbrook DO Requesting Physician: Probable IBD Attending Physician: Adrian Westbrook DO History of Present Illness Patient is a 23 year old male who presented to the emergency department with complaints of progressively worsening rectal pain over the past few days. He reports a 2 year history of diarrhea which had worsened recently over the past 2 weeks. Typically, he would have 3-5 loose bowel movements daily but lately has been having 10-20. no brbpr, though notes stools can be darker at times. He was seen recently at [facility], diagnosed with a hemorrhoid, and provided a prescription for hydrocortisone cream. Due to progressive symptoms he presented to the ED for evaluation. He had a CT done showing a 15mm perirectal abscess with mild pancolitis. He was admitted and started on Zosyn. He is planned to have I&D today of abscess. He still has rectal pain though somewhat better with tylenol. he does admit some abdominal pain that comes and goes, but none at this time. still having diarrhea. He has never had a colonoscopy. no family history of IBD. 02/24/24 hgb 14.2, wbc 10.8, CRP 2.62. stool studies unremarkable. 02/25/24 hgb 13, wbc 11.6. Allergies Allergy/AdvReac Type Severity Reaction Status Date / Time cat dander Allergy Intermediate Sneezing Unverified 02/25/24 13:25 Home Medications Medication Instructions Recorded Confirmed Type hydrocortisone 2.5 % topical cream 1 applic [place] DAILY PRN IRRITATION 02/24/24 02/24/24 History with perineal applicator Patient History Medical History No significant past medical history Surgical History No significant past surgical history Social History (Updated 02/24/24 @ 11:58 by Jus Mann) Smoking Status: Never smoker Second Hand Exposure: Yes; Do You Dip or Chew Tobacco: No; Hx Alcohol Use: No Hx Substance Use: No Preferred Language: Ukrainian Communication Ability: Effective Hvac Estimator Required: No Beliefs That Will Affect Care: Orthodoxy Orthodoxy Beliefs: Muslium No pig products or gelitin. current occupational status: student Feels Safe at Home: Yes Assistive Devices: None Review of Systems Review of Systems: All systems reviewed & are unremarkable except as noted in HPI & below Physical Exam Constitutional: WD/WN, vitals as above Respiratory: normal respiratory effort, lungs clear to auscultation Cardiovascular: RRR, no murmur, no edema Gastrointestinal (Abdomen): normal bowel sounds, soft, nontender, no hepatosplenomegaly Psychiatric: Orientation: alert and oriented x 3 Affect: euthymic affect Results & Data Vital Signs (Past 12 Hours) Vital Signs Temp Pulse Resp BP Pulse Ox O2 Del Method 02/25/24 07:15 98.6 F 92 H 16 113/69 98 Room Air Coding Level of Care Code 50016 IN/OBS CONSULT LVL 4,60M Diagnoses Pancolitis K51.00 Krista-rectal abscess K61.1
[2024-02-25] MEDS ORDERED: MIDAZOLAM HCL 1 MG/ML 2ML VIAL ONE (11:46)
[2024-02-25] MEDS ORDERED: LIDOCAINE 2% 2 ML VIAL/AMP(20MG/ML) INFIL ONE (11:46)
[2024-02-25] MEDS ORDERED: ONDANSETRON INJ 2 MG/ML 2 ML VIAL ONE (11:46)
[2024-02-25] MEDS ORDERED: fentaNYL citrate PF 100 MCG/2 ML VIAL ONE ×2 (11:46→14:11)
[2024-02-25] MEDS ORDERED: PROPOFOL IV EMULSION 10 MG/ML 20 ML VIAL IV ONE (11:46)
--- NOTE | 2024-02-25 12:41 | Anesthesiology Consultation ---
Date of Service February 25, 2024 Assessment & Plan (1) Encounter for pre-operative examination: Chart Review Chart Review: Acceptable Risk for Surgery History Surgery Operation Date: 02/25/24 08:25 Proposed Procedures p Incision and Drainage Perirectal Abscess - Raissa Dewitt DO Height/Weight Height: 6 ft Weight: 122.9 kg Allergies Allergy/AdvReac Type Severity Reaction Status Date / Time cat dander Allergy Intermediate Sneezing Unverified 02/24/24 14:34 Medications Home Medications Medication Instructions Recorded Confirmed Last Taken hydrocortisone 2.5 % topical cream 1 applic [place] DAILY PRN IRRITATION 02/24/24 02/24/24 02/24/24 with perineal applicator Active Medications Generic Name Dose Route Start Last Admin Trade Name Freq PRN Reason Stop Dose Admin Acetaminophen 650 mg 02/24/24 14:20 02/25/24 08:43 Acetaminophen 325 Mg Tab PO 03/25/24 14:19 650 mg Q6H PRN Administration pain(1-4),headache,fever Pantoprazole Sodium 40 mg/ 10 mls @ 5 mls/min 02/24/24 21:00 02/25/24 08:43 Syringe IV 03/25/24 20:59 5 mls/min BID DARI Administration Piperacillin Sod/Tazobactam 100 mls @ 25 mls/hr 02/24/24 20:00 02/25/24 11:08 Sod 4.5 gm/ Dextrose IV 03/05/24 19:59 25 mls/hr Q8H DARI Administration Protocol Sodium Chloride 1,000 mls @ 100 mls/hr 02/25/24 08:00 02/25/24 07:59 Nss IV 02/25/24 17:59 100 mls/hr .Q10H DARI Administration Past Medical History Medical History No significant past medical history Past Surgical History Surgical History No significant past surgical history Social History Smoking Status: Never smoker Do You Dip or Chew Tobacco: No Hx Alcohol Use: No Hx Substance Use: No substance use type: does not use Physical Exam Vital Signs Last Vital Signs Temp 37.0 C 02/25/24 07:15 Pulse 92 H 02/25/24 07:15 Resp 16 02/25/24 07:15 BP 113/69 02/25/24 07:15 Pulse Ox 98 02/25/24 07:15 O2 Del Method Room Air 02/25/24 07:15 Testing Laboratory Results 02/25/24 06:14 02/25/24 06:14 PT 11.3 Seconds (9.0-12.0) 02/25/24 06:14 INR 1.0 (0.9-1.1) 02/25/24 06:14 Urine Color Yellow 02/24/24 19:20 Urine Appearance Clear (Clear) 02/24/24 19:20 Urine pH 7.5 (4.5-7.5) 02/24/24 19:20 Ur Specific Primrose > 1.045 (1.000-1.030) H 02/24/24 19:20 Urine Protein Negative (Negative) 02/24/24 19:20 Urine Glucose (UA) Negative (Negative) 02/24/24 19:20 Urine Ketones Negative (Negative) 02/24/24 19:20 Urine Nitrite Negative (Negative) 02/24/24 19:20 Ur Leukocyte Esterase Negative (Negative) 02/24/24 19:20
[2024-02-25] MEDS ORDERED: PROMETHAZINE HCL 6.25 MG in SODIUM CHLORIDE 0.9% 50 ML IV PRN (13:25)
[2024-02-25] MEDS ORDERED: fentaNYL citrate PF 100 MCG/2 ML VIAL IV PRN (13:25)
[2024-02-25] MEDS ORDERED: ATROPINE SULFATE 0.1 MG/ML 10ML SYR IV PRN (13:25)
[2024-02-25] MEDS ORDERED: ONDANSETRON INJ 2 MG/ML 2 ML VIAL IV PRN (13:25)
[2024-02-25] MEDS ORDERED: ePHEDrine sulfate 50 MG/ML AMP IV PRN (13:25)
--- NOTE | 2024-02-25 13:29 | History & Physical Bridge Note ---
Date of Service February 25, 2024 History & Physical Bridge Note I have examined the patient, reviewed the History & Physical and in the interval since the performance of the History & Physical I have noted the following changes of clinical significance: no changes noted Presents to OR for I&D perirectal abscess
[2024-02-25] MEDS: BUPIVACAINE 0.5 % 5 MG/1 ML MPF 30ML VIAL ONE (14:24)
--- NOTE | 2024-02-25 14:29 | Operative Report ---
[facility] Post Operative Report Pre & Post Diagnosis Operation Date: 02/25/24 08:25 Pre-Op Diagnosis: DIARRHEA, PERIRECTAL, PANCOLITIS Post-Op Diagnosis: DIARRHEA, PERIRECTAL, PANCOLITIS I identified the patient and participated in the time-out.: Yes Procedure Operation Date: 02/25/24 08:25 Actual Procedures p Incision and Drainage Perirectal Abscess(Not Applicable) - Raissa Fernandez DO Surgeon Raissa Dewitt DO Wood Tile Installer YARELI Feliz Estimated Blood Loss 4 Findings Consistent with Post-Op Diagnosis left perirectal abscess with evidence for intra-rectal drainage Specimens None Anesthesia Type General Complications None Indications Worsening symptoms at perirectal area on IV antibiotics after CT evidence for small abscess on admission Description of Procedure The patient was brought back to the operating room and placed on the operating table in lithotomy position. He was connected to cardiac and oxygen monitoring SCDs were applied to bilateral lower extremities and the patient was administered supplemental O2. He was administered general anesthesia and a secure airway was established. The perineal area was prepped and draped in typical sterile fashion and a timeout was conducted. An area of induration noted at the left perirectal region was palpated. Upon palpation of this area there was evidence for small amount of purulent fluid draining from the rectum. The area of greatest induration was accessed with an 18-gauge needle and immediately revealing thick purulent fluid from the needle insertion site. A culture was collected A cruciate incision was then made with a 15 blade and additional thick purulent fluid was evacuated. The area was Irrigated with Saline Solution. Bleeding from the skin edges was controlled with cautery. Local anesthetic was used to anesthetize the wound. The wound was then packed with half-inch packing, cover with dry sterile gauze and an ABD. The patient tolerated the procedure well. He was awakened from anesthesia and transferred to recovery in stable condition. I attest to the content of the Intraoperative Record and any orders documented therein. Any exceptions are noted below.
--- NOTE | 2024-02-25 15:03 | Anesthesiology Progress Note ---
Date of Service February 25, 2024 Anesthesia Post Procedure Vital Signs Vital Signs: Temp Pulse Pulse Resp BP Pulse Ox O2 Del Method 02/25/24 15:00 90 14 118/70 100 Oxymask 02/25/24 14:50 85 12 122/59 L 100 Oxymask 02/25/24 14:41 36.1 C L 97 H 14 101/54 L 99 Oxymask 02/25/24 13:18 36.9 C 108 H 18 121/67 97 Room Air 02/25/24 07:15 37.0 C 92 H 16 113/69 98 Room Air 02/24/24 20:09 37.4 C 82 16 106/70 99 Room Air 02/24/24 15:26 36.9 C 93 H 16 119/65 98 Room Air O2 Flow Rate 02/25/24 15:00 4 02/25/24 14:50 14 02/25/24 14:41 14 02/25/24 13:18 02/25/24 07:15 02/24/24 20:09 02/24/24 15:26 Transfer of Care Handoff Completed per policy Notes Mental Status: alert / awake / arousable Patient Amnestic to Procedure: Yes Nausea / Vomiting: adequately controlled Pain: adequately controlled Airway Patency, RR, SpO2: stable & adequate BP & HR: stable & adequate Hydration State: stable & adequate Anesthetic Complications: no major complications apparent
[2024-02-25] MEDS ORDERED: oxyCODONE HCL IR 5 MG TAB (IMMEDIATE RELEASE) PO PRN (15:25)
[2024-02-25] MEDS ORDERED: ACETAMINOPHEN 325 MG TAB PO PRN (15:25)
[2024-02-25] MEDS: LACTATED RINGER'S 1,000 ML IV SCH (15:27)
--- NOTE | 2024-02-25 18:01 | Billing Data ---
Date of Service February 25, 2024 Coding Level of Care Code 90465 SUB INP/OBS CARE 3MIN
[2024-02-26 07:58] LABS: Basophils # (auto) 0.07 K/uL (0.00-0.20); Basophils % (auto) 0.8 %; Eosinophils # (auto) 0.36 K/uL (0.00-0.50); Eosinophils % (auto) 4.2 %; Hematocrit (blood only) 37.6 % (42.0-52.0); Hemoglobin 12.2 g/dl (14.0-18.0); Immature Granulocytes # (auto) 0.04 K/uL (0.01-0.20); Immature Granulocytes % (auto) 0.5 %; Lymphocytes # (auto) 2.54 K/uL (1.20-3.40); Lymphocytes % (auto) 29.4 %; Mean Corpuscular Hemoglobin 26.3 pg (25.0-34.0); Mean Corpuscular Hgb Conc 32.4 g/dL (32.0-36.0); Mean Platelet Volume 9.8 fL (9.4-12.4); Monocytes # (auto) 0.91 K/uL (0.11-0.59); Monocytes % (auto) 10.5 %; Neutrophils # (auto) 4.73 K/uL (1.40-6.50); Neutrophils % (auto) 54.6 %; Platelet Count 294 K/uL (130-400); RDW Coefficient of Variation 12.5 % (11.5-14.5); RDW Standard Deviation 36.4 fL (36.4-46.3); Red Blood Count 4.64 M/uL (4.70-6.10); White Blood Count 8.65 K/ul (4.8-10.8)
[2024-02-26 08:21] LABS: Albumin Globulin Ratio 1.3 (0.9-2); Albumin Level 3.5 gm/dl (3.4-5.0); BUN Creatinine Ratio 8.3 (10-20); Bilirubin,Total 0.9 mg/dl (0.2-1.0); Calcium 8.6 mg/dl (8.6-10.3); Creatinine Clr Calc Pharmacy 163.3 ml/min; Est GFR (African American) 129.5 ml/min; Est GFR (Non-African American) 111.8 ml/min; Globulin 2.8 gm/dl (2.5-4.0); Magnesium 2.1 mg/dl (1.7-2.4); Potassium 4.1 mmol/L (3.5-5.1); Total Protein 6.3 gm/dl (6.0-8.3)
--- NOTE | 2024-02-26 11:40 | Med Student Discharge Summary ---
Date of Service February 26, 2024 Admission HPI Per Admitting Provider Morro Is a 23-year-old male with a past medical history of asthma who presented to the [facility] ED on 02/24/2024 with complaints of ongoing diarrhea and progressive rectal pain for the past 2 weeks. On arrival to the ED he was noted to be tachycardic at 117 but was otherwise stable. Labs were significant for leukocytosis of 10 with neutrophil predominance of 7 and total bili of 1.8 with other LFTs within normal limits. CT of the abdomen pelvis with IV contrast was read as a 15 mm left perirectal abscess. Mild circumferential thickening throughout the colon consistent with a mild pancolitis. This could be due to an underlying inflammatory bowel disease GI consultation recommended. The ED spoke to general surgery who will evaluate the patient but did not believe the abscess is large enough to be drained at this time. Prior to admission the patient was given 1 L NSS and was ordered a dose of Zosyn. Patient was sitting in bed in no acute distress at time of exam. He explains that he has been having persistent diarrhea over the past 2 weeks. Approximately 10-20 episodes of diarrhea daily. Denies bloody bowel movements, but notes some dark/black diarrhea at times. No recent fevers chills, no recent nausea/vomiting, has been able to eat and drink without issue. Over the past 2 weeks he has developed progressive rectal pain, mainly on the upper left perirectal area. He was evaluated at [facility] on 02/23/2024 and was given hemorrhoid cream. Since using the hemorrhoid cream his pain is progressed. No previous history or diagnosis of IBS for the patient or in his family. He does note 2-3 other episodes in the past of diarrhea and mild abdominal pain. He used 1 dose of ibuprofen for his pain yesterday but has not been taking it consistently. Please refer to Dr. Woodard's attestation for any changes to the treatment plan Discharge Exam Constitutional Patient sitting upright in bed. Alert and oriented, in no acute distress. Eyes PEERL, EOMI, anicteric sclera, no conjunctival injection. Respiratory Equal breath sounds bilaterally. Lungs clear to auscultation bilaterally. No wheezes, rales, rhonchi. Cardiovascular Regular rate and rhythm. No murmurs, rubs, or gallops. Gastrointestinal (Abdomen) Normal bowel sounds. Abdomen soft and nondistended. No tenderness to palpation. No hepatosplenomegaly. No guarding or rebound. Neurologic CN II-XII. No focal deficits. Discharge Data Consultations 02/24/24 14:13 ED Decision to Admit Stat 02/24/24 14:20 Consult General Surgery Routine 02/25/24 09:21 Consult Gastroenterology Routine Procedures Performed Operation Date: 02/25/24 08:25 Actual Procedures p Incision and Drainage Perirectal Abscess(Not Applicable) - Raissa Fernandez DO Hospital Course (1) Krista-rectal abscess: Patient is a 23y/o male with no significant past medical history presented for perirectal abscess in the setting of chronic diarrhea. Perirectal Abscess: Status: acute, stable. I&D by general surgery 02/25/24. NPO, on NSS 100ml/hr. Zosyn 4.5 IV q8hr. Tylenol and morphine prn for pain control. (2) Pancolitis: CT abdomen/pelvis showed mild circumferential thickening throughout colon consistent with a mild pancolitis, likely consistent with IBD especially in the setting of chronic diarrhea. Status: acute, stable. Pantoprazole 40 mg IV BID. Continue IV fluids and IV abx per perirectal abscess plan above. GI consulted. Mesalamine 800mg PO BID. (3) Diarrhea: Ongoing diarrhea 1yr, significantly worse in the last 2 weeks. Highly suspicious for underlying IBD and suspect patient is currently in an acute flare especially in the setting of a perirectal abscess. Status: acute on chronic, improving. GI consulted. Mesalamine 800mg PO BID. Plan Patient is a 23y/o male with no significant past medical history who presented on 02/24/24 for rectal pain. While in the hospital the patient was found to have a 15mm perirectal abscess on CT abd/pelvis. Patient underwent I&D without complications by general surgery on 02/25/24. Patient reported significant improvement in pain after this procedure. Patient is to take Augmentin PO BID for 7 days. Patient also reported a 1 year history of diarrhea that significantly worsened in the last [address] abd/pelvis showed evidence of mild circumferential thickening of the colon, consistent with pancolitis. This finding is suspicious for potential underlying IBD. GI was consulted. Patient was started on mesalamine 800mg PO BID and is to continue this medication. GI will follow up with him as an outpatient to scheduled for colonoscopy. Discharge Plan Discharge Items Patient Disposition: Home - Self-Care Reason For Visit: DIARRHEA, PERIRECTAL, PANCOLITIS Discharge Diagnosis: incision and drainage of krista-rectal abscess Activity: Per Instructions section Bathing Comment: take warm sitz baths 3-4x/daily Exercise/Sports: Wait until after follow-up appointment Driving/Machine Use: no driving while taking any narcotics for pain Non-emergency contact: Primary Care Provider and Surgeon Call non-emergency contact if: your pain is not controlled, you have a fever, your temperature is above 101.5, your wound has increased redness, your wound has increased drainage and your wound pain has increased Follow-up/Referrals: [facility] [Primary Care Provider] - Raissa Dewitt DO [Physician] - 03/11/24 9:30 am ( follow up in clinic within 2 weeks) Sancho Cuenca MD [Resident] - Diet: Regular Addtl Attending Provider Instructions: Perirectal abscess You may remove your surgical packing tomorrow, 02/26/24. It is a thin white piece of gauze dressing in the krista-rectal wound. You may sit in a warm water tub and pull it while sitting in the warm water to allow for a gentle packing removal. Once packing is removed you may place a dry gauze/abd pad dressing in your undergarments and change this daily and as needed to help collect any drainage. May use some medical tape to help keep it in place or wear compressive undergarments to help keep it in place. Take warm tub soaks/sitz baths after bowel movements or 3-4x/daily as you wish for comfort and cleansing of the area Follow up with Dr. Dewitt in 1-2 weeks for check up You were given antibiotics while hospitalized. For going home, we are starting you on a new medication: amoxicillin/clavulanate (Augmentin) 500/125 mg by mouth 3x daily Chronic diarrhea, pancolitis Your symptoms are concerning for IBD (Inflammatory Bowel Disease), which will require further evaluation by gastroenterology. We have started you on a new medication: mesalamine (Asacol) 800mg by mouth 2x daily You still have some labs pending that will help us form a diagnosis and may change your medications You have a followup appointment scheduled at our clinic on Saturday 03/03 at 9am. Please arrive by 8:45 and have your insurance information ready. [facility] the [facility]). If you have any questions or concerns, please call [phone] and ask to leave a message for Dr. Cuenca. You have a followup appointment scheduled with gastroenterology Sunday 03/18 at 3:20pm. Contact our clinic or your surgeon if you have issues with your medications, your symptoms worsen, you experience fevers, or there are complications with your wound. Pending Studies at Discharge: Yes Stand-Alone Forms: My [facility] 911 View, Smoking Cessation Medications and DC Order Prescriptions: New mesalamine 800 mg tablet,delayed release (DR/EC) 800 mg PO BID Qty: 60 0RF Rx Instructions: must be taken on empty stomach; no food 1 hr after or 2-3 hrs before dose amoxicillin-pot clavulanate [Augmentin] 500-125 mg tablet 1 tab PO BID 7 Days Qty: 14 0RF Discontinued hydrocortisone 2.5 % cream with perineal applicator 1 applic [place] DAILY PRN (Reason: IRRITATION) Discharge Orders: Discharge Order (Routine); Ordered 02/26/24 Ordered By: Sancho Rodriguez/Other Patient Handouts: Understanding Perianal Abscess Admission Data Admit Date/Time: 02/24/24 15:09 Attending Provider: Adrian Westbrook Admit Provider: Juan Woodard Primary Care Provider: [facility] Other Providers: Juan Woodard; Raissa Dewitt; Kobe Roberts Other Interventions: Discharge Summary Assessment (RN) Last Done: 02/26/24 11:56 Supervising Attestation I personally examined the patient and verified all vance points of history and exam, discussed case, and agree with decision making with Dr Cuenca and Esme Yeager MS4 feels better feels up to going home discussed abx/wound care, probable IBD. Vitals noted, in general he is awake and alert pleasant no distress. HEENT normocephalic atraumatic mucous membranes moist. Breathing unlabored no accessory muscle use good effort. Skin shows no rashes no pallor or icterus. Neuro without focal deficits. Perirectal abscess, CT appearance of colitis, diarrheahighly concerning for inflammatory bowel disease. post I&D for abscess - home, wound care, PO abx. mesalamine for probable IBD pending labs and colo. establishing w [facility] for local PCP given complexity DVT proph - ambulation otherwise as above Resident Activity Tracking Resident Involvement: Resident Care Provided Care Provided: Adult Hospital Medicine Resident Supervision Co-Signing Physician Notes I also saw the patient and confirmed vance portions of the history and exam. I agree with the assessment and plan as written by the student.
--- NOTE | 2024-02-26 15:09 | Billing Data ---
Date of Service February 26, 2024 Coding Level of Care Code 93128 IN/OBS DISCH 30 MIN/LESS
== END 2024-02-26 13:24 | disposition home or self-care (01) | DRG 346 ==
LOC: ED 11:05 → 3W 14:48 → SUATTDRO 15:09 → 3W 15:09